=== PATIENT | female | born 1975 | race Caucasian/White ===

== ENCOUNTER 2020-02-29 13:25 | Emergency (ER) | payer OTHER ==
[~2020-02-29 13:25] MED LIST: BACTRIM DS TAB1 EACH PO; BENTYL 20MG TAB20 MG PO; IBU600 MG PO; LEVAQUIN750 MG PO; NAPROSYN500 MG PO; PROVENTIL HFA6.7 GM INH; PYRIDIUM200 MG PO; REGLAN10 MG PO; ZITHROMAX500 MG PO; ZOFRAN4 MG PO
[2020-02-29] MEDS ORDERED: PYRIDIUM200 MG PO (14:48)
[2020-02-29] MEDS ORDERED: MACROBID 100 M100 MG PO (14:48)
== END 2020-02-29 14:53 | disposition home or self-care (01) ==
LOC: ER1 13:25
DX: N39.0 Urinary tract infection, site not specified (principal); J45.909 Unspecified asthma, uncomplicated; F17.210 Nicotine dependence, cigarettes, uncomplicated; Z98.890 Other specified postprocedural states
CPT/HCPCS: 81001; 84703; 87086; 99283

== ENCOUNTER 2020-11-11 20:33 | Emergency (ER) | payer OTHER ==
[~2020-11-11 20:33] MED LIST changes: +MACROBID 100 M100 MG PO
[2020-11-11 21:24] LABS: HEMOGLOBIN 15.1 gm/dl (12.3-15.3); RED BLOOD COUNT 5.19 M/UL (4.00-5.10); WHITE BLOOD COUNT 8.2 K/UL (4.5-11.0)
[2020-11-11 21:43] LABS: BUN/CREATININE RATIO 7 (0-10)
== END 2020-11-12 00:06 | disposition home or self-care (01) ==
LOC: ER1 20:33
PROVIDERS: Physician Assistant Medical
DX: R55 Syncope and collapse (principal); R06.02 Shortness of breath; R05 Cough; J44.9 Chronic obstructive pulmonary disease, unspecified; F17.210 Nicotine dependence, cigarettes, uncomplicated; Z20.822 Contact with and (suspected) exposure to COVID-19
CPT/HCPCS: 71045; 80053; 82550; 82553; 83874; 84484; 84702; 85025; 85379; 93005; 99285; U0002

== ENCOUNTER → 2020-11-29 | Outpatient (CLI) | payer OTHER ==
[2020-11-29 10:41] LABS: HEMOGLOBIN 14.7 gm/dl (12.3-15.3); RED BLOOD COUNT 4.91 M/UL (4.00-5.10); WHITE BLOOD COUNT 6.3 K/UL (4.5-11.0)
[2020-11-29 11:08] LABS: BUN/CREATININE RATIO 11 (0-10)
== END ==
LOC: LAB 10:05
PROVIDERS: Nurse Practitioner
DX: Z00.01 Encounter for general adult medical examination with abnormal findings (principal); R00.9 Unspecified abnormalities of heart beat; E78.2 Mixed hyperlipidemia; F17.210 Nicotine dependence, cigarettes, uncomplicated; R06.02 Shortness of breath; Z79.899 Other long term (current) drug therapy; R53.83 Other fatigue; E78.5 Hyperlipidemia, unspecified; E55.9 Vitamin D deficiency, unspecified
CPT/HCPCS: 36415; 80053; 80061; 82607; 82746; 83036; 83735; 84443; 85025; 87086

== ENCOUNTER → 2020-12-12 | Outpatient (CLI) | payer OTHER | LOC: HEART 5 14:00 | DX: R00.9 Unspecified abnormalities of heart beat (principal) ==

== ENCOUNTER 2021-03-14 14:41 | Emergency (ER) | payer OTHER | END 2021-03-14 16:37 | disposition home or self-care (01) | LOC: ER1 14:41 | DX: U07.1 COVID-19 (principal); F17.200 Nicotine dependence, unspecified, uncomplicated | CPT/HCPCS: 71045; 99283; U0002 ==

== ENCOUNTER 2021-03-30 09:05 | Emergency (ER) | payer OTHER ==
[2021-03-30 10:48] LABS: HEMOGLOBIN 14.4 gm/dl (12.3-15.3); RED BLOOD COUNT 4.94 M/UL (4.00-5.10); WHITE BLOOD COUNT 9.1 K/UL (4.5-11.0)
[2021-03-30 11:12] LABS: BUN/CREATININE RATIO 8 (0-10)
[2021-03-30] MEDS ORDERED: BROMFED DM COU473 ML PO (12:05)
== END 2021-03-30 12:50 | disposition home or self-care (01) ==
LOC: ER1 09:05
PROVIDERS: Nurse Practitioner
DX: J39.8 Other specified diseases of upper respiratory tract (principal); F17.210 Nicotine dependence, cigarettes, uncomplicated
CPT/HCPCS: 36600; 71045; 80048; 81001; 82550; 82553; 82803; 83874; 84484; 85025; 93005; 96374; 99285; J1100; J7030

== ENCOUNTER 2021-09-22 11:47 | Emergency (ER) | payer OTHER ==
[~2021-09-22 11:47] MED LIST changes: +BROMFED DM COU473 ML PO
== END 2021-09-22 14:29 | disposition home or self-care (01) ==
LOC: ER1 11:47
DX: S70.12XA Contusion of left thigh, initial encounter (principal); S90.31XA Contusion of right foot, initial encounter; S40.022A Contusion of left upper arm, initial encounter; S40.021A Contusion of right upper arm, initial encounter; S80.212A Abrasion, left knee, initial encounter; S80.211A Abrasion, right knee, initial encounter; Y04.2XXA Assault by strike against or bumped into by another person, initial encounter; F17.200 Nicotine dependence, unspecified, uncomplicated
CPT/HCPCS: 73630; 99283